=== PATIENT | male | born 1990 | race Asian ===

== ENCOUNTER 2019-10-20 10:36 | Emergency (ER) | payer BC ==
[~2019-10-20] VITALS: Ht 167.6 cm; Wt 100.2 kg
[2019-10-20 10:49] VITALS: Ht 167.6 cm; Wt 100.2 kg
[2019-10-20 13:02] VITALS: BP 149/98
== END 2019-10-20 13:06 | disposition home or self-care (01) ==
LOC: ED 10:36
DX: M54.5 Low back pain (principal); R10.32 Left lower quadrant pain; R30.0 Dysuria